=== PATIENT | female | born 1970 | race Caucasian/White ===

== ENCOUNTER 2019-08-08 09:00 | Outpatient (RCR) | payer BC, SELFPAY | END 2019-08-08 09:05 | disposition home or self-care (01) | LOC: PT 09:00 | PROVIDERS: PCP Family Medicine; Visit Provider Orthopaedic Surgery | DX: M25.562 Pain in left knee (principal) | CPT/HCPCS: 97010; 97014; 97033; 97035; 97110; 97163; G0283 ==

== ENCOUNTER 2019-10-04 09:30 | Outpatient (RCR) | payer BC, SELFPAY | END 2019-10-04 09:35 | disposition home or self-care (01) | LOC: PT 09:30 | PROVIDERS: Visit Provider Orthopaedic Surgery | DX: M25.562 Pain in left knee (principal); M22.42 Chondromalacia patellae, left knee | CPT/HCPCS: 97010; 97014; 97110; 97163; G0283 ==

== ENCOUNTER → 2020-02-25 09:11 | Outpatient (CLI) | payer BC, SELFPAY ==
--- NOTE | 2020-02-25 09:26 | XR_ITS ---
PROCEDURE: XR CHEST 2V CLINICAL HISTORY: COUGH COMPARISON: XR CHEST AP from 07/15/2019 FINDINGS: The cardiomediastinal silhouette and pulmonary vascularity are within normal limits. The lungs are clear without infiltrates, suspicious nodules, or pleural effusions. No acute bony abnormalities. Again noted is the mild deformity of the right posterior 4th rib stable unchanged from the previous exam. There may be partial fusion of the right 3rd and 4th ribs posteriorly near the posterior axillary line. IMPRESSION: No acute findings. Dictated by: Dr. Jensen Mcbride MD 02/25/2020 09:[address] Jensen Mcbride MD in [place] 02/25/2020 09:51
== END ==
PROVIDERS: PCP Family Medicine; Visit Provider Family Medicine
DX: R05 Cough (principal)
CPT/HCPCS: 71046

== ENCOUNTER 2020-03-05 23:05 | Emergency (ER) | payer BC, SELFPAY ==
[2020-03-05 23:06] VITALS: BP 136/74; PULSE 78; RESP 16; TEMP 37.2; O2SAT 99; BMI 24.1
[2020-03-05 23:55] LABS: Basophils # 0.1 K/mm3 (0-0.2); Basophils % 0.5 % (0.1-2.0); Chloride 103 mmol/L (98-107); Eosinophils % 0.4 % (0.1-12.0); Hematocrit 38.9 % (37.0-47.0); Hemoglobin 13.1 g/dL (12.2-16.2); Lymphocytes % 18.8 % (10-50); Mean Corpuscular HGB Conc 33.7 g/dL (31.8-35.4); Mean Corpuscular Hemoglobin 31.5 pg (27.0-31.2); Mean Corpuscular Volume 93.7 fl (81-99); Monocytes # 0.6 K/mm3 (0.1-1.0); Monocytes % 5.5 % (1.7-9.3); Neutrophils % 74.7 % (37.0-80.0); Platelet Count 342 K/mm3 (142-424); Potassium 3.8 mmoL/L (3.5-5.1); Red Blood Count 4.15 M/mm3 (4.20-5.40); Red Cell Distribution Width 13.6 % (11.5-17.5); Sodium 139 mmol/L (136-145); White Blood Count 10.7 K/mm3 (4.8-10.8)
[2020-03-05 23:58] LABS: Alanine Aminotransferase 36 U/L (12-78); Albumin Level 4.1 g/dl (3.5-5.0); Albumin/Globulin Ratio 1.3 (1.1-1.8); Alkaline Phosphatase 95 U/L (38-126); Anion Gap 11.8 mEq/L (5-15); Aspartate Amino Transferase 30 U/L (14-36); Bilirubin,Total 0.8 mg/dl (0.2-1.3); Blood Urea Nitrogen 19 mg/dl (7-17); Carbon Dioxide 28 mmol/L (22.0-30.0); Creatinine Clearance Estimated 82 mL/min (50-200); Estimated Glomerular Filt Rate 66 ml/min (>60); GFR (African American) 80 ML/MIN (>60); Globulin 3.2 g/dL (1.3-3.2); Total Protein,Serum 7.3 g/dl (6.3-8.2)
[2020-03-05 23:59] LABS: Calcium 9.6 mg/dl (8.4-10.2); Glucose 126 mg/dl (74-100)
--- NOTE | 2020-03-06 00:02 | CT_ITS ---
PROCEDURE: CT ABDOMEN PELVIS WO CON CLINICAL INDICATION: right flank pain Right flank pain COMPARISON: No exams were available for comparison TECHNIQUE: Axial images obtained with sagittal and coronal reformats. All CT scans at the facility use one or more dose reduction, viz: automated exposure control, ma/kV adjustment per patient size (including targeted exams where dose is matched to indication, i.e. head), or iterative reconstruction technique. FINDINGS: LOWER THORAX: No acute finding ABDOMEN & PELVIS: The liver, spleen, adrenal glands, and pancreas have an unremarkable unenhanced appearance. There is mild distention of the gallbladder. There is moderate right hydronephrosis and hydroureter secondary to a 3 mm stone at the right ureterovesical junction. There are at least 3 stones in the right kidney measuring up to 3 mm in the upper pole. There is a 5.4 cm left renal cyst. No intestinal obstruction or free air. No evidence of appendicitis. There are scattered colonic diverticula but no evidence of diverticulitis. There has been a prior hysterectomy. No acute bony findings. IMPRESSION: 1. 3 mm right ureterovesical junction stone with moderate right-sided hydroureteronephrosis 2. Right nephrolithiasis. 3. Left renal cyst Dictated by: Franklin Hartman MD 03/06/2020 06:11 Electronically signed by Franklin Hartman MD in [place] 03/06/2020 06:11
[2020-03-06 00:05] LABS: Microscopic, Urine URINE MICROSCOPIC (MICROSCOPIC)
[2020-03-06 00:19] LABS: Appearance,Urine CLEAR (Clear); Bilirubin,Urine Negative (Negative); Blood, Urine 2+ (Negative); Color,Urine YELLOW (Yellow); Glucose,Urine (UA) Negative (Negative); Ketones,Urine Negative (Negative); Leukocyte Esterase,Urine Negative (Negative); Nitrate,Urine Negative (Negative); PH,Urine 8.5 (5.0-8.5); Protein,Urine TRACE (Negative); Urobilinogen,Urine 0.2 EU/dl (0.2)
[2020-03-06 00:20] LABS: Bacteria,Urine Trace /lpf
--- NOTE | 2020-03-06 00:39 | HMH.EDGENADL ---
ED Disposition Clinical Impression: Renal colic on right side Disposition: Home, Self-Care Condition on Discharge: Good Instructions: DI for Kidney Stones Additional Instructions: fluids and call urology and pcp in am Referrals: Luis Eduardo Brooks MD [Primary Care Provider] - Solis Stevens MD [Staff Physician] - - Critical Care Critical Care Time: No Attestation: On 03/05/20, the high probability of a clinically significant, sudden or life threatening deterioration of the following system(s) required my full and direct attention, intervention and personal management. The time I documented below is in addition to time spent performing reported procedures but includes the following listed in this critical care notation. Medical Decision Making - Medical Records Medical records reviewed: Yes: I reviewed the patient's medical records. - Yoan Inquiry Pt receiving controlled substance: No Vital Signs: 03/05/20 23:06 Temperature 98.9 F Temperature Source Oral Pulse Rate [Left Radial] 78 Respiratory Rate 16 Blood Pressure [Right Arm] 136/74 Blood Pressure Mean [Right Arm] 94 Blood Pressure Source [Right Arm] Automatic Cuff Blood Pressure Position [Right Arm] Sitting 02 Sat by Pulse Oximetry 99 Oxygen Delivery Method Room Air - Lab Data Lab results reviewed: Yes: I reviewed the patient's lab results. Lab Results 03/05/20 23:38: WBC 10.7, RBC 4.15 L, Hgb 13.1, Hct 38.9, MCV 93.7, MCH 31.5 H, MCHC 33.7, RDW 13.6, Plt Count 342, MPV 7.0 L, Neut % (Auto) 74.7, Lymph % (Auto) 18.8, [place] % (Auto) 5.5, Eos % (Auto) 0.4, Baso % (Auto) 0.5, Neut # (Auto) 8.0 H, Lymph # (Auto) 2.0, [place] # (Auto) 0.6, Eos # (Auto) 0.0, Baso # (Auto) 0.1 03/05/20 23:38: Sodium 139, Potassium 3.8, Chloride 103, Carbon Dioxide 28, Anion Gap 11.8, BUN 19 H, Creatinine 0.90, Estimated Creat Clear 82, Estimated GFR 66, Est GFR ( Amer) 80, Glucose 126 H, Calcium 9.6, Total Bilirubin 0.8, AST 30, ALT 36, Alkaline Phosphatase 95, Total Protein 7.3, Albumin 4.1, Globulin 3.2, Albumin/Globulin Ratio 1.3 03/05/20 23:45: Urine Color Yellow, Urine Appearance Clear, Urine pH 8.5, Ur Specific [place] 1.020, Urine Protein Trace, Urine Glucose (UA) Negative, Urine Ketones Negative, Urine Blood 2+, Urine Nitrate Negative, Urine Bilirubin Negative, Urine Urobilinogen 0.2, Ur Leukocyte Esterase Negative, Urine RBC 5-10, Urine WBC 3-5, Ur Squamous Epith Cells 3-5, Urine Bacteria Trace Result diagrams: 03/05/20 23:38 03/05/20 23:38 Orders (Tests/Meds): ED MEDICATIONS Generic Name Dose Route Start Last Admin Trade Name Freq PRN Reason Stop Dose Admin Sodium Chloride 1,000 mls @ 999 mls/hr 03/05/20 23:45 03/05/20 23:49 Sod Chlor 0.9% 1000ml Bag IV 03/06/20 00:45 999 mls/hr .Q1H1M JENNIFER Administration Discontinued Medications Generic Name Dose Route Start Last Admin Trade Name Freq PRN Reason Stop Dose Admin Ketorolac Tromethamine 30 mg 03/05/20 23:46 03/05/20 23:49 Toradol 30mg/Ml Vial IV 03/05/20 23:47 30 mg ONCE ONE Administration Ondansetron HCl 4 mg 03/05/20 23:46 03/05/20 23:49 Zofran 4mg/2ml Vial IV 03/05/20 23:47 4 mg ONCE ONE Administration ORDERS Category Date Time Status CT abdomen pelvis wo con Stat Cat Scan 03/06/20 00:02 Taken - CT Data CT Scan: Abdomen, Pelvis Time Received: 00:[address] Reviewed: Yes: I have viewed the radiologist's interpretation Preliminary Findings: Abnormal (2 mm rt stone ) - Reevaluation(s) Time: 00:43 Reevaluation #1: better General Adult HPI - General Chief complaint: PAIN Stated complaint: Possible kidney stone Time Seen by Provider: 03/05/20 23:15 Mode of Arrival: Ambulatory Source of Information: Patient Limitations: No Limitations Description of Symptoms (Recalled from ER Triage Doc. by RN): pt c/o right flank pain since 5pm with no relief. pt reports history of kidney stones. - History of Present Illness HPI narrative: acut
[2020-03-06 00:53] VITALS: BP 132/68; PULSE 71; RESP 15; TEMP 37; O2SAT 98
== END 2020-03-06 00:58 | disposition home or self-care (01) ==
PROVIDERS: Emergency Provider Emergency Medicine; PCP Family Medicine
DX: N23 Unspecified renal colic (principal)
CPT/HCPCS: 74176; 80053; 81001; 85025; 96365; 96375; 99283; J2405

== ENCOUNTER 2020-05-07 08:00 | Outpatient (RCR) | payer BC, SELFPAY | END 2020-05-07 08:05 | disposition home or self-care (01) | LOC: PT 08:00 | PROVIDERS: PCP Family Medicine; Visit Provider Orthopaedic Surgery | DX: Z96.652 Presence of left artificial knee joint (principal); M25.562 Pain in left knee | CPT/HCPCS: 97010; 97014; 97016; 97110; 97140; 97163; 97164; G0283 ==

== ENCOUNTER → 2020-09-14 16:17 | Outpatient (CLI) | payer BC, SELFPAY ==
[2020-09-16 13:40] LABS: Covid-19 Nasal PCR Sendout Lex POSITIVE
== END ==
PROVIDERS: PCP Family Medicine; Visit Provider Family Medicine
DX: Z20.828 Contact with and (suspected) exposure to other viral communicable diseases (principal); U07.1 COVID-19; R05 Cough
CPT/HCPCS: U0004

== ENCOUNTER → 2020-12-14 11:24 | Outpatient (CLI) | payer BC, SELFPAY ==
--- NOTE | 2020-12-14 11:30 | XR_ITS ---
PROCEDURE: XR FOOT RT MIN 3V CLINICAL INDICATION: SWELLING OF RT FOOT COMPARISON: CR FTR3 FOOT-RT-3 VIEWS from 05/31/2016 FINDINGS: No fracture or dislocation. No lytic or blastic change. There is normal mineralization. The joint spaces are well-preserved. No significant degenerative/arthritic changes. No erosive changes evident. Other findings:None. IMPRESSION: No acute findings. Dictated by: Franklin Hartman MD 12/14/2020 12:18 Franklin Hartman MD in [place] 12/14/2020 12:18
[2020-12-14 12:38] LABS: Basophils % 0.6 % (0.1-2.0); Eosinophils # 0.2 K/mm3 (0.0-0.4); Eosinophils % 3.3 % (0.1-12.0); Hematocrit 43.3 % (37.0-47.0); Hemoglobin 14.1 g/dL (12.2-16.2); Lymphocytes # 1.8 K/mm3 (0.7-4.5); Lymphocytes % 35.4 % (10-50); Mean Corpuscular HGB Conc 32.6 g/dL (31.8-35.4); Mean Corpuscular Hemoglobin 31.3 pg (27.0-31.2); Mean Platelet Volume 7.6 fl (7.4-10.4); Monocytes # 0.4 K/mm3 (0.1-1.0); Monocytes % 7.1 % (1.7-9.3); Neutrophils # 2.7 K/mm3 (1.8-7.8); Neutrophils % 53.5 % (37.0-80.0); Platelet Count 361 K/mm3 (142-424); Red Blood Count 4.51 M/mm3 (4.20-5.40); Red Cell Distribution Width 12.6 % (11.5-17.5); White Blood Count 5.1 K/mm3 (4.8-10.8)
[2020-12-14 12:50] LABS: Uric Acid 4.3 mg/dl (2.5-6.2)
[2020-12-14 14:35] LABS: Erythrocyte Sedimentation Rate 13 mm/hr (0-30)
[2020-12-15 15:42] LABS: RA Latex Turbid. <10.0 IU/mL (0.0-13.9)
[2020-12-17 05:22] LABS: Antinuclear Antibodies, IFA Negative (.)
== END ==
PROVIDERS: PCP Nurse Practitioner Family; Visit Provider Nurse Practitioner Family
DX: M79.89 Other specified soft tissue disorders (principal); M79.671 Pain in right foot
CPT/HCPCS: 36415; 73630; 84550; 85025; 85651; 86038; 86140; 86431

== ENCOUNTER → 2022-01-10 13:59 | Outpatient (CLI) | payer BC, SELFPAY ==
--- NOTE | 2022-01-10 14:07 | XR_ITS ---
FINAL REPORT CLINICAL HISTORY: CERVICALGIA, dizzy spells, object fell on back of neck years ago FINDINGS: 5 views of the cervical spine were obtained. There is no acute fracture or subluxation. There is straightening of the normal cervical lordosis. Mild degenerative changes are seen with osteophytes. There is no significant neural foraminal narrowing. IMPRESSION: Degenerative changes without acute bony abnormality. Reviewed, Interpreted and Dictated by Roscoe Lemon III, MD Transcribed by Kristel Padilla Authenticated by Roscoe Lemon III, MD on 01/10/2022 03:07:25 PM [facility]
--- NOTE | 2022-01-10 14:28 | MR_ITS ---
FINAL REPORT CLINICAL HISTORY: CERVICALGIA. dizziness and headache. FINDINGS: Multiplanar MR imaging of the cervical spine was performed without contrast. On the sagittal T2-weighted images, disc degeneration is seen throughout. There are endplate changes at several levels. There is straightening of the normal cervical curvature which could be due to positioning or muscle spasm. There is no evidence of fracture. The vertebral alignment is normal. The cervical spinal cord has an unremarkable appearance without evidence of mass, edema or syrinx. No significant canal stenosis is identified. The cervicomedullary junction is normal. C2-3: An annular bulge is present. There is no significant canal stenosis or neural foraminal narrowing. C3-4: There is an annular bulge with uncovertebral osteophytes. There is mild left neural foraminal narrowing. C4-5: There is a disc osteophyte complex. There is mild right and moderate left neural foraminal narrowing. C5-6: There is a disc osteophyte complex with mild bilateral neural foraminal narrowing. C6-7: There is an annular bulge with uncovertebral osteophytes. There is mild bilateral neural foraminal narrowing. C7-T1: There is no significant canal stenosis or neural foraminal narrowing. IMPRESSION: Multilevel degenerative disc disease with areas of neural foraminal narrowing as described. Reviewed, Interpreted and Dictated by Roscoe Lemon III, MD Transcribed by Roman Davis Authenticated by Roscoe Lemon III, MD on 01/10/2022 04:32:[address] [facility]
== END ==
PROVIDERS: PCP Nurse Practitioner Family; Visit Provider Nurse Practitioner Family
DX: M54.2 Cervicalgia (principal)
CPT/HCPCS: 72050; 72141; 76376

== ENCOUNTER 2022-04-26 09:49 | Emergency (ER) | payer BC, SELFPAY ==
--- NOTE | 2022-04-26 09:44 | ECG_ITS ---
APPROVED REPORT Exam: Resting ECG HR:69 bpm ECG Measurements Heart Rate 69 AXES ID 153 P 62 QRSd 82 QRS 52 QT 415 T 44 QTc 434 Conclusion SINUS RHYTHM NORMAL ECG UNCONFIRMED REPORT Electronically signed by : Luis Eduardo Cox MD 04/27/2022 21:03:28
[2022-04-26 09:49] VITALS: BP 151/81; PULSE 73; RESP 15; TEMP 36.6; O2SAT 100; BMI 25.0
--- NOTE | 2022-04-26 09:55 | XR_ITS ---
FINAL REPORT CLINICAL HISTORY: syncope COMPARISON: February 25, 2020 FINDINGS: Two views of the chest were obtained. The heart size and pulmonary vascularity are within normal limits. The mediastinum is normal. No acute pulmonary abnormality is identified. There is no pneumothorax. The bony thorax is intact. IMPRESSION: No active cardiopulmonary disease. Reviewed, Interpreted and Dictated by Roscoe Lemon III, MD Transcribed by Roman Davis Authenticated and [facility]
[2022-04-26 10:01] VITALS: BP 147/80; PULSE 71; RESP 13; O2SAT 96
--- NOTE | 2022-04-26 10:04 | HMH.EDGENADL ---
ED Disposition Clinical Impression: Status migrainosus, Syncope and collapse Disposition: Home, Self-Care Condition on Discharge: Good Instructions: DI for Syncope in Adults (Fainting), DI for Migraine Additional Instructions: Additional instructions for HEADACHE: See your physician as soon as possible for further evaluation. Return immediately if fainting returns, worsening headache, vomiting, problems with vision or speech, fever, numbness or weakness of the extremities, neck pain or stiffness. Referrals: Provider,Referral, MD [Primary Care Provider] - Forms: Work/School Release - Critical Care Critical Care Time: No Attestation: On , the high probability of a clinically significant, sudden or life threatening deterioration of the following system(s) required my full and direct attention, intervention and personal management. The time I documented below is in addition to time spent performing reported procedures but includes the following listed in this critical care notation. Medical Decision Making - Yoan Inquiry Pt receiving controlled substance: No Vital Signs: 04/26/22 09:49 04/26/22 10:01 04/26/22 11:01 Temperature 97.8 F Temperature Source Oral Pulse Rate 71 84 Pulse Rate [Left Radial] 73 Respiratory Rate 15 13 Blood Pressure 147/80 H 142/79 H Blood Pressure [Right Arm] 151/81 H Blood Pressure Mean 102 104 Blood Pressure Mean [Right Arm] 104 Blood Pressure Source [Right Arm] Automatic Cuff Blood Pressure Position [Right Arm] Sitting 02 Sat by Pulse Oximetry 100 96 100 Oxygen Delivery Method Room Air 04/26/22 11:30 Temperature Temperature Source Pulse Rate 71 Pulse Rate [Left Radial] Respiratory Rate Blood Pressure 138/71 Blood Pressure [Right Arm] Blood Pressure Mean 93 Blood Pressure Mean [Right Arm] Blood Pressure Source [Right Arm] Blood Pressure Position [Right Arm] 02 Sat by Pulse Oximetry 99 Oxygen Delivery Method - Lab Data Lab Results 04/26/22 09:45: WBC 6.5, RBC 4.23, Hgb 13.4, Hct 39.4, MCV 93.2, MCH 31.7 H, MCHC 34.0, RDW 11.8, Plt Count 355, MPV 6.7 L, Neut % (Auto) 54.7, Lymph % (Auto) 36.7, [place] % (Auto) 6.4, Eos % (Auto) 1.6, Baso % (Auto) 0.5, Neut # (Auto) 3.6, Lymph # (Auto) 2.4, [place] # (Auto) 0.4, Eos # (Auto) 0.1, Baso # (Auto) 0.0 04/26/22 09:45: Sodium 139, Potassium 3.4 L, Chloride 105, Carbon Dioxide 24, Anion Gap 13.4, BUN 13, Creatinine 0.80, Estimated Creat Clear 93, Estimated GFR 75, Est GFR ( Amer) 91, Glucose 144 H, Calcium 9.4, Total Bilirubin 0.2, AST 30, ALT 28, Alkaline Phosphatase 110, Troponin I < 0.01, Total Protein 7.0, Albumin 4.1, Globulin 2.9, Albumin/Globulin Ratio 1.4 Result diagrams: 04/26/22 09:45 04/26/22 09:45 Orders (Tests/Meds): ED MEDICATIONS Generic Name Dose Route Start Last Admin Trade Name Freq PRN Reason Stop Dose Admin Sodium Chloride 10 ml 04/26/22 09:55 Sodium Chloride 0.9% 10ml Flush Syringe IV 05/26/22 09:54 NEEDED PRN Maintain IV Site Discontinued Medications Generic Name Dose Route Start Last Admin Trade Name Freq PRN Reason Stop Dose Admin Diphenhydramine HCl 25 mg 04/26/22 09:55 04/26/22 10:01 Diphenhydramine 50mg/Ml Vial IV 04/26/22 09:56 25 mg ONCE ONE Administration Sodium Chloride 1,000 mls @ 999 mls/hr 04/26/22 10:00 04/26/22 10:03 Sod Chlor 0.9% 1000ml Bag IV 04/26/22 11:00 999 mls/hr .Q1H1M JENNIFER Administration Ketorolac Tromethamine 30 mg 04/26/22 09:55 04/26/22 10:00 Ketorolac 30mg/Ml Vial IV 04/26/22 09:56 30 mg ONCE ONE Administration Promethazine HCl 12.5 mg 04/26/22 09:55 04/26/22 10:03 Promethazine Hcl 25mg/Ml 1ml Vial IV 04/26/22 09:56 12.5 mg ONCE ONE Administration Sodium Chloride 25 ml 04/26/22 09:55 04/26/22 10:03 Sodium Chloride 0.9% 25ml Bag IV 04/26/22 09:56 25 ml ONCE ONE Administration ORDERS Category Date Time Status Troponin I Q3H Lab 04/26/22 13:00 Order
--- NOTE | 2022-04-26 10:05 | PC.NURSE ---
pt to radiology via wheelchair
[2022-04-26 10:09] LABS: Basophils % 0.5 % (0.1-2.0); Eosinophils # 0.1 K/mm3 (0.0-0.4); Eosinophils % 1.6 % (0.1-12.0); Hematocrit 39.4 % (37.0-47.0); Hemoglobin 13.4 g/dL (12.2-16.2); Lymphocytes # 2.4 K/mm3 (0.7-4.5); Lymphocytes % 36.7 % (10-50); Mean Corpuscular Hemoglobin 31.7 pg (27.0-31.2); Mean Corpuscular Volume 93.2 fl (81-99); Mean Platelet Volume 6.7 fl (7.4-10.4); Monocytes # 0.4 K/mm3 (0.1-1.0); Monocytes % 6.4 % (1.7-9.3); Neutrophils # 3.6 K/mm3 (1.8-7.8); Neutrophils % 54.7 % (37.0-80.0); Platelet Count 355 K/mm3 (142-424); Red Blood Count 4.23 M/mm3 (4.20-5.40); Red Cell Distribution Width 11.8 % (11.5-17.5); White Blood Count 6.5 K/mm3 (4.8-10.8)
--- NOTE | 2022-04-26 10:10 | PC.NURSE ---
patient returned from radiology via .
[2022-04-26 10:15] LABS: Alanine Aminotransferase 28 U/L (12-78); Albumin Level 4.1 g/dl (3.5-5.0); Albumin/Globulin Ratio 1.4 (1.1-1.8); Alkaline Phosphatase 110 U/L (38-126); Anion Gap 13.4 mEq/L (5-15); Aspartate Amino Transferase 30 U/L (14-36); Bilirubin,Total 0.2 mg/dl (0.2-1.3); Blood Urea Nitrogen 13 mg/dl (7-17); Calcium 9.4 mg/dl (8.4-10.2); Carbon Dioxide 24 mmol/L (22.0-30.0); Chloride 105 mmol/L (98-107); Creatinine Clearance Estimated 93 mL/min (50-200); Estimated Glomerular Filt Rate 75 ml/min (>60); GFR (African American) 91 ML/MIN (>60); Globulin 2.9 g/dL (1.3-3.2); Glucose 144 mg/dl (74-100); Potassium 3.4 mmoL/L (3.5-5.1); Sodium 139 mmol/L (136-145)
--- NOTE | 2022-04-26 10:21 | PC.NURSE ---
LANE [facility] at speaking with patient
--- NOTE | 2022-04-26 10:25 | CT_ITS ---
FINAL REPORT CLINICAL HISTORY: headache, syncope COMPARISON: 07/15/2019 FINDINGS: Axial images of the head were obtained without contrast. Coronal reformatted images were also obtained.This study was performed with techniques to keep radiation doses as low as reasonably achievable (ALARA). Individualized dose reduction techniques using automated exposure control or adjustment of mA and/or kV according to the patient's size were employed. There is no evidence of intracranial hemorrhage or mass. The ventricular size is within normal limits. There is no evidence of shift of the midline structures. No abnormal extra axial fluid collection is identified. No skull abnormality is seen on the bone window images. IMPRESSION: No acute intracranial abnormality. Reviewed, Interpreted and Dictated by Roscoe Lemon III, MD Transcribed by Vera Ferguson Authenticated and [facility]
[2022-04-26 10:32] LABS: Troponin I < 0.01 ng/ml (0.00-0.034)
--- NOTE | 2022-04-26 10:43 | PC.NURSE ---
pt to CT via WC with airbrush artist technical
[2022-04-26 11:01] VITALS: BP 142/79; PULSE 84; O2SAT 100
--- NOTE | 2022-04-26 11:14 | PC.NURSE ---
pt ambulated up to BR
[2022-04-26 11:30] VITALS: BP 138/71; PULSE 71; O2SAT 99
--- NOTE | 2022-04-26 11:41 | PC.NURSE ---
Rounded on patient; she reports her DANIELLE is still lingering but shes feeling somewhat better. She has no needs at this time. Aware that her scans are back and the ER MD will be in shortly.
--- NOTE | 2022-04-26 12:10 | PC.NURSE ---
ER at going over lab and imaging results with patient; friend at BS
[2022-04-26 12:17] VITALS: BP 123/64; PULSE 80; RESP 20; TEMP 36.6; O2SAT 99
== END 2022-04-26 12:18 | disposition home or self-care (01) ==
PROVIDERS: Emergency Provider Emergency Medicine
DX: G43.901 Migraine, unspecified, not intractable, with status migrainosus (principal); R55 Syncope and collapse
CPT/HCPCS: 70450; 71046; 80053; 84484; 85025; 93005; 96365; 96375; 99284

== ENCOUNTER 2022-05-27 13:20 | Emergency (ER) | payer BC, SELFPAY ==
--- NOTE | 2022-05-27 14:02 | HMH.EDUTC ---
[facility] [place] Disposition Clinical Impression: Viral syndrome, Exposure to COVID-19 virus Disposition: Home, Self-Care Condition on Discharge: Good Instructions: DI for COVID-19 (Suspected or Confirmed ), Preventing the Spread of Coronavirus Discharge Instructions Additional Instructions: Drink plenty of fluids. Take tylenol or ibuprofen for pain or fever. Take the medications as directed. Follow up with your regular doctor. GO TO THE ER FOR ANY WORSENING SYMPTOMS Quarantine until you know the results of your covid-19 test. Notify your school or workplace of your results and follow their instructions regarding return to work/school. Prescriptions: Ondansetron [Zofran 4mg ODT] 4 mg PO Q8HP PRN #20 tab PRN Reason: Nausea Transmission Status: Received by [id number] Benzonatate [Benzonatate 100mg cap] 100 mg PO TIDP PRN #30 cap PRN Reason: Cough Transmission Status: Received by [id number] Referrals: Coty Kelly APRN [Primary Care Provider] - Time of Disposition: 14:57 Medical Decision Making - Medical Records Medical records reviewed: No: I reviewed the patient's medical records. - Yoan Inquiry Pt receiving controlled substance: No Vital Signs: 05/27/22 14:12 05/27/22 15:04 Temperature 98.5 F 98.5 F Temperature Source Oral Pulse Rate 80 Pulse Rate [Left Radial] 81 Respiratory Rate 20 20 Blood Pressure 131/70 Blood Pressure [Right Arm] 139/79 Blood Pressure Mean [Right Arm] 99 02 Sat by Pulse Oximetry 96 Oxygen Delivery Method Room Air [facility] [place] HPI - General Stated complaint: sore throat,nausea,weak,headache Time Seen by Provider: 05/27/22 14:02 - History of Present Illness Provider Complaint: She state that she has felt bad since yesterday. she has been exposed to covid by her boyfriend having it. - Related Data Home Medications Medication Instructions Recorded Confirmed Aspirin/Acetaminophen/Caffeine 1 each PO DAILY PRN 07/14/19 07/14/19 [Excedrin Migraine Caplet] Previous Rx's Medication Instructions Recorded Ketorolac Tromethamine [Toradol 10 mg PO Q6H 3 Days #12 tab 07/15/19 10mg tablet] Benzonatate [Benzonatate 100mg 100 mg PO TIDP PRN #30 cap 05/27/22 cap] Ondansetron [Zofran 4mg ODT] 4 mg PO Q8HP PRN #20 tab 05/27/22 Allergies Allergy/AdvReac Type Severity Reaction Status Date / Time No Known Allergies Allergy Verified 07/14/19 23:09 [facility] History - Hepatitis A Screen Attestation statement:: This patient has been screened for Hepatitis A risk factors. I have reviewed the patient's past medical history: Yes Medical History: Denies:: Diabetes Mellitus Type 1, Diabetes Mellitus Type 2, Internal Pacemaker Other Surgeries: No: Pacemaker Amputation: No - Social History Alcohol Intake: never Occupational Status: employed ROS Obtained: Yes All systems reviewed & no additional complaints - Constitutional Constitutional: Reports as per HPI - Eyes Eyes: Denies eye discharge - ENT Ears, Nose, Mouth, and Throat: Reports as per HPI - Cardiovascular Cardiovascular: Denies chest pain - Respiratory Respiratory: Denies chest congestion, Reports cough Physical Exam - General General appearance: alert, in no apparent distress - Head Head exam: atraumatic, normocephalic, normal inspection - Eye Eye exam: Present: normal appearance, PERRL, EOMI - ENT ENT exam: Present: normal exam, normal oropharynx, mucous membranes moist, TM's normal bilaterally, normal external ear exam - Neck Neck exam: Present: normal inspection, full ROM, trachea midline. Absent: meningismus, lymphadenopathy - Chest Chest inspection: Present: normal inspection, symmetric chest wall rise. Absent: tenderness - Respiratory Respiratory exam: Present: normal lung sounds bilaterally. Absent: respiratory distress - Cardiovascular Cardiovascular exam: Present: regular rate, normal rhythm. Absent: JV
[2022-05-27 14:12] VITALS: BP 139/79; PULSE 81; RESP 20; TEMP 36.9; O2SAT 96; BMI 23.5
[2022-05-27 15:04] VITALS: BP 131/70; PULSE 80; RESP 20; TEMP 36.9; O2SAT 97
== END 2022-05-27 15:05 | disposition home or self-care (01) ==
PROVIDERS: Emergency Provider Nurse Practitioner Family; PCP Nurse Practitioner Family
DX: Z20.822 Contact with and (suspected) exposure to COVID-19 (principal); B34.9 Viral infection, unspecified
CPT/HCPCS: 99212; C9803; G0463; U0003; U0005

== ENCOUNTER → 2022-09-06 09:44 | Outpatient (CLI) | payer BC, SELFPAY ==
--- NOTE | 2022-09-06 09:47 | MM_ITS ---
PROCEDURE INFORMATION: Exam: MG Bilateral Screening 3D Mammography Exam date and time: 09/06/2022 9:43 AM Age: 51 years old Clinical indication: Screening examination TECHNIQUE: Imaging protocol: Bilateral Screening tomosynthesis and 2D mammography including computer-aided detection (CAD) when performed. COMPARISON: No relevant prior studies available. FINDINGS: MAMMOGRAPHY: Breast composition: There are scattered areas of fibroglandular density. Mass: 0.8 cm mass in the posterior third of the right upper outer quadrant. 0.7 cm mass in close proximity to the larger mass within the posterior third of the right upper outer quadrant Architectural distortion: None. Calcifications: No suspicious calcifications. Asymmetric density: None. Skin thickening: None. Axillary adenopathy: None. IMPRESSION: Patient to be recalled for spot compression views of the right breast in the CC and MLO projections, a full 90 degree lateral view, and right breast ultrasound for further evaluation of 2 adjacent right breast masses. ASSESSMENT: BI-RADS Category 0: Incomplete- Need Additional Imaging Evaluation and/or Prior Mammograms for Comparison
== END ==
PROVIDERS: PCP Nurse Practitioner Family; Visit Provider Family Medicine
DX: Z12.31 Encounter for screening mammogram for malignant neoplasm of breast (principal)
CPT/HCPCS: 77063; 77067

== ENCOUNTER → 2022-10-24 14:29 | Outpatient (CLI) | payer BC, SELFPAY ==
--- NOTE | 2022-10-24 14:37 | MM_ITS ---
PROCEDURE INFORMATION: Exam: US Right Breast, Complete MG Right Diagnostic Breast Tomosynthesis Exam date and time: 10/24/2022 3:26 PM Age: 51 years old Clinical indication: Patient recalled on the basis of a screening mammogram for further evaluation; Right breast; masses TECHNIQUE: Imaging protocol: Complete ultrasound of all four quadrants of the Right breast and the retroareolar regions, including ultrasound of the axilla when performed. Right Diagnostic tomosynthesis and 2D mammography including computer-aided detection (CAD) when performed. Unilateral or bilateral exam. COMPARISON: MG MM DIG MAMM DX UNILAT RT CAD 10/24/2022 2:40 PM FINDINGS: MAMMOGRAPHY: Digital diagnostic spot compression views of the right upper outer quadrant demonstrates a solitary persistent 0.8 cm mass without associated architectural distortion. ULTRASOUND: Sonographic images of the right breast including the retroareolar region, all 4 quadrants and the axilla do not demonstrate any solid masses. Few scattered subcentimeter cysts are noted in the upper outer quadrant. The largest cyst measures 0.6 cm and appears to most closely correspond to the mass on mammography. No architectural distortion or acoustical shadowing. No skin thickening or axillary adenopathy. IMPRESSION: Mass on screening mammography corresponds to underlying cystic change sonographically. There is no mammographic evidence of malignancy.Annual bilateral mammographic screening is recommended unless otherwise clinically indicated. ASSESSMENT: BI-RADS Category 2: Benign
== END ==
PROVIDERS: PCP Internal Medicine; Visit Provider Nurse Practitioner Family
DX: R92.8 Other abnormal and inconclusive findings on diagnostic imaging of breast (principal)
CPT/HCPCS: 76641; 77061; 77065; G0279

== ENCOUNTER 2022-12-09 07:59 | Emergency (ER) | payer BC, SELFPAY ==
[2022-12-09 08:05] VITALS: BP 146/95; PULSE 78; RESP 21; TEMP 36.5; O2SAT 99; BMI 22.1
[2022-12-09 08:20] LABS: UTC Strep Screen (Rapid) Negative (Negative)
--- NOTE | 2022-12-09 08:20 | EXP.UTC ---
Discharge Plan Disposition Patient Disposition: Home, Self-Care Condition: Good Prescriptions Prescriptions: New benzonatate [benzonatate] 100 mg capsule 100 mg PO TIDP PRN (Reason: Cough) Qty: 30 0RF methylprednisolone 4 mg Tablets,Dose Pack 4 mg PO DIRECTED Qty: 21 0RF amoxicillin-pot clavulanate 500-125 mg tablet 1 tab PO BID Qty: 20 0RF No Action trazodone 50 mg tablet 50 mg PO DAILY levothyroxine 50 mcg tablet 50 mcg PO DAILY Ubrelvy 100 mg tablet 100 mg PO DAILYP PRN (Reason: MIGRAINES) Label Comments: TAKE 1 TABLET BY MOUTH ONCE DAILY NEEDED Referrals Follow up/Referrals: Cheng Cadena MD [Primary Care Provider] - See instructions Activity Restrictions/Add. Instructions Additional Instructions/Restrictions: Drink plenty of fluids. Take tylenol or ibuprofen for pain or fever. Take the medications as directed. Follow up with your regular doctor. GO TO THE ER FOR ANY WORSENING SYMPTOMS Clinical Impressions Clinical Impression: Pharyngitis Stand Alone Forms Stand Alone Forms: Work/School Release Instructions Patient Instructions: DI for Pharyngitis/Tonsillopharyngitis -- Adult Discharge ED Provider: Roque Engel [facility] General Stated complaint: Cough sore throat Mode of Arrival: Ambulatory Source of Information: Patient Limitations: No Limitations Time Seen by Provider: 12/09/22 08:20 Description of Symptoms (Recalled from Triage Doc. by RN): PATIENT C/O COUGH, SORE THROAT, AND CHEST CONGESTION SINCE YESTERDAY HEENT Symptoms (Recalled from RN notes): Yes Resp Symptoms (Recalled from RN notes): Yes Skin Symptoms (Recalled from RN notes): No MS Symptoms (Recalled from RN notes): No Functional Status (Recalled from RN notes): WNL Related Data Home Medications Medication Instructions Recorded Confirmed levothyroxine 50 mcg tablet 50 mcg PO DAILY THYROID 12/09/22 12/09/22 trazodone 50 mg tablet 50 mg PO DAILY . 12/09/22 12/09/22 ubrogepant 100 mg tablet (Ubrelvy) 100 mg PO DAILYP PRN MIGRAINES 12/09/22 12/09/22 Previous Rx's Medication Instructions Recorded amoxicillin 500 mg-potassium 1 tab PO BID #20 tabs 12/09/22 clavulanate 125 mg tablet benzonatate 100 mg capsule 100 mg PO TIDP PRN Cough #30 caps 12/09/22 methylprednisolone 4 mg tablets in 4 mg PO DIRECTED #21 tabs 12/09/22 a dose pack Allergies Allergy/AdvReac Type Severity Reaction Status Date / Time No Known Allergies Allergy Verified 07/14/19 23:09 Worker's Comp Is this a Worker's Comp case?: No [facility] Disclaimer: The information contained in this section may have been updated after the patient was seen, as this information can be updated by other users. Social History Smoking Status: Former smoker alcohol intake: never current occupational status: employed Travel in the last 8 weeks: None ROS Obtained: Yes All systems reviewed & no additional complaints except as documented Constitutional Constitutional: Reports chills and Denies fever(s) Eyes Eyes: Denies eye discharge ENT Ears, Nose, Mouth, and Throat: Reports as per HPI Cardiovascular Cardiovascular: Denies chest pain Respiratory Respiratory: Denies chest congestion and Reports cough Gastrointestinal Gastrointestingal: Reports nausea; Denies abdominal pain, constipation, cramping, diarrhea or vomiting Musculoskeletal Musculoskeletal: Denies arthralgias Integumentary/Breasts Skin/Breast: Denies rash Neurologic Neurologic: Denies paresthesias Physical Exam General General appearance: alert and in no apparent distress Head Head exam: atraumatic, normocephalic and normal inspection Eye Eye exam: Present normal appearance, PERRL and EOMI ENT ENT exam: Present mucous membranes moist and normal external ear exam Expanded ENT Exam TM/Canal exam: Bilateral TM: erythema and bulging Nose exam: Absent sinus tenderness Mouth exam: Present normal external inspection;
[2022-12-09 09:11] VITALS: BP 146/95; PULSE 78; RESP 21; TEMP 36.5; O2SAT 99
== END 2022-12-09 09:12 | disposition home or self-care (01) ==
PROVIDERS: Emergency Provider Nurse Practitioner Family; PCP Internal Medicine
DX: J02.9 Acute pharyngitis, unspecified (principal); R05.9 Cough, unspecified; R09.89 Other specified symptoms and signs involving the circulatory and respiratory systems
CPT/HCPCS: 87880; 99212; 99213; G0463

== ENCOUNTER 2023-04-19 08:30 | Outpatient (RCR) | payer BC, SELFPAY | END 2023-04-19 08:35 | disposition home or self-care (01) | LOC: PT 08:30 | PROVIDERS: PCP Internal Medicine | DX: M76.71 Peroneal tendinitis, right leg (principal); M76.821 Posterior tibial tendinitis, right leg; M19.071 Primary osteoarthritis, right ankle and foot; M79.671 Pain in right foot | CPT/HCPCS: 97010; 97014; 97035; 97140; 97163; G0283 ==

== ENCOUNTER 2024-02-22 07:46 | Outpatient (CLI) | payer BC, SELFPAY ==
--- NOTE | 2024-02-22 07:49 | MM_ITS ---
PROCEDURE INFORMATION: Exam: MG Bilateral Screening 3D Mammography Exam date and time: 02/22/2024 7:44 AM Age: 53 years old Clinical indication: Screening mammogram TECHNIQUE: Imaging protocol: Bilateral Screening tomosynthesis and 2D mammography including computer-aided detection (CAD) when performed. COMPARISON: 1. MG MM DIG MAMM DX UNILAT RT CAD 10/24/2022 2:40 PM 2. MG MM DIG SCREENING MAMM BI W/CAD 09/06/2022 9:43 AM 3. US BREAST RT COMPLETE 10/24/2022 3:26 PM FINDINGS: MAMMOGRAPHY: Breast composition: There are scattered areas of fibroglandular density. Mass: Stable benign-appearing subcentimeter nodules are present in the bilateral breasts. No new or morphologically suspicious nodule has developed to suggest malignancy. Architectural distortion: No new or suspicious architectural distortion. Calcifications: No new or suspicious calcifications are present Asymmetric density: No new or suspicious asymmetric density is present Skin thickening: None. Axillary adenopathy: None. IMPRESSION: No mammographic evidence of malignancy. Recommend annual screening mammography unless otherwise clinically indicated. ASSESSMENT: BI-RADS category 2: Benign.
== END 2024-02-22 23:59 | disposition home or self-care (01) ==
LOC: RAD 07:47
PROVIDERS: PCP Internal Medicine; Visit Provider Internal Medicine
DX: Z12.31 Encounter for screening mammogram for malignant neoplasm of breast (principal)
CPT/HCPCS: 77063; 77067

== ENCOUNTER 2025-02-24 14:13 | Outpatient (CLI) | payer BC, SELFPAY ==
--- NOTE | 2025-02-24 14:16 | MM_ITS ---
PROCEDURE INFORMATION: Exam: MG Bilateral Screening 3D Mammography Exam date and time: 02/24/2025 2:19 PM Age: 54 years old Clinical indication: Screening examination TECHNIQUE: Imaging protocol: Bilateral Screening tomosynthesis and 2D mammography including computer-aided detection (CAD) when performed. COMPARISON: 1. MG MM DIG SCREENING MAMM BI W/CAD 02/22/2024 7:44 AM 2. MG MM DIG MAMM DX UNILAT RT CAD 10/24/2022 2:40 PM FINDINGS: MAMMOGRAPHY: Breast composition: There are scattered areas of fibroglandular density. Mass: None. Archite ctural distortion: None. Calcifications: No suspicious calcifications. Asymmetric density: None. Skin thickening: None. Axillary adenopathy: None. IMPRESSION: No mammographic evidence of malignancy. Annual screening is recommended unless otherwise clinically indicated. ASSESSMENT: BI-RADS 1, Negative.
== END 2025-02-24 23:59 | disposition home or self-care (01) ==
LOC: RAD 14:14
PROVIDERS: PCP Internal Medicine; Visit Provider Internal Medicine
DX: Z12.31 Encounter for screening mammogram for malignant neoplasm of breast (principal)
CPT/HCPCS: 77063; 77067

== ENCOUNTER 2025-04-13 10:56 | Emergency (ER) | payer BC, SELFPAY ==
[2025-04-13] VITALS (7 sets, daily range): BP systolic 122–190; BP diastolic 72–112; PULSE 94–106; RESP 15–16; TEMP 36.6–37.9; O2SAT 93–99; BMI 24.5
--- OUTSIDE RECORDS SUMMARY | 2025-04-13 11:03 | XMS_ITS | Data Portability ---
Author Organization [facility] YONATHAN MoiseS PALMER CLOSED Address [address] [place] [address] Care Team Providers Care Last Marker Name Role Phone LUIS EDUARDO BROOKS Primary Care Provider Assessment Encounter Date Assessment Date Assessment LastModified by Organization Details LastModified Time 06/04/2024 06/04/2024 EMG/NCV was reviewed, independently assessed, and discussed with the patient in the office today. Findings consistent with moderate to severe right carpal tunnel syndrome. 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 Discussion was had with patient in clinic today regarding diagnosis of carpal tunnel syndrome. Treatment options consisting of both conservative management and surgical intervention were discussed. I explained that initial treatment of carpal tunnel syndrome typically consist of conservative measures such as nighttime wrist splinting and activity modifications. If this fails or if the diagnosis is unclear we sometimes can consider a corticosteroid injection. However, if conservative measures fail, symptoms are worsening with a clear diagnosis of carpal tunnel syndrome, and/or there is evidence of severe compression at the carpal canal then surgical carpal tunnel release is recommended. At this time patient has failed conservative management with worsening symptoms and has elected to proceed with surgical right carpal tunnel release. Patient will be scheduled for right endoscopic carpal tunnel release at her convenience. Risk and benefits of the surgical procedure were explained to the patient in clinic today, including but not limited to incomplete symptom relief, recurrence, need for additional procedures, stiffness, damage to surrounding tissues/structure s/nerves/vessels, wound complications, and infection. Patient expressed understanding and all questions were answered to the patient's satisfaction. [email or web address] Not available 06/04/2024 17:53:47 07/02/2024 07/02/2024 Patient can gradually resume activity with the hand as tolerated at this time. I discussed scar massage with patient in clinic today. Patient will follow-up in 4 weeks for final postoperative assessment, but will call in the interim with any additional questions or concerns. [email or web address] Not available 07/04/2024 10:22:39 08/08/2024 08/08/2024 Patient can continue activity with the hand as tolerated at this time. Continue scar massage. Patient will follow up in clinic on an as-needed basis should additional questions or concerns arise. [email or web address] Not available 08/08/2024 14:11:55 Plan of Treatment Reminders Order Date Submit Date Provider Last Modified By Organization Details Last Modified Time Details Appointments None record ed. Lab None record ed. Referral None record ed. Procedures None record ed. Surgeries None record ed. Imaging None record ed. Medication Orders None record ed. Patient TargetsNo targets recorded. Patient InstructionsNo instructions recorded. Reason for Referral None Reported. Problems No Known Problems Procedures Surgical History Date Name Laterality Status Provider Name and Address Organization Details Recorded Time Carpal Tunnel Release, Endoscopic - Kary completed AYLEEN REYNA MD [address] [place], [address], [facility] 06/17/2024 11:18:38 9 [facility] 10:48:55 9 Injection Joint/Bursa, Major completed CHARLY SOLARES MD [address] [place], [address], [facility] 07/01/2019 13:22:39 orthopedic assessment completed [facility] 08/09/2018 15:38:49 procedure on wrist completed [facility] 08/09/2018 15:39:03 Caesarean Section completed [facility] 08/09/2018 15:39:10 Shoulder joint surgery completed [facility] 08/09/2018 15:39:27 Imaging Results None recorded. Procedure Notes None recorded. Medical Equipment None Reported. Allergies No known drug allergies Medications Name Sig Start Date Stop Date Status Note LastModified by Organization Details LastModified Time meloxicam 15 mg tablet Take 1 tablet every day by oral route as needed. 2019 active no longer taking per pt 024 Not Available Not Available Not Available tramadol 50 mg tablet TAKE 1 TABL PO Q 6 HRS PRN FOR SEVERE POST SURGICAL PAIN 07/02 completed Not Available Not Available Not Available meloxicam 7.5 mg tablet TAKE 1 TABLE PO QD WITH FOOD REGARDLE SS OF PAIN LEVEL FOR 1 WEEK. THEN TAKE 1 TABLET PO QD ONLY PRN FOR PAIN RELIEF THEREAFT ER 07/02 completed Not Available Not Available Not Available Zofran 4 mg tablet Take 1 tablet every 8 hours by oral route. 2018 active no longer taking per pt 024 Not Available Not Available Not Available Cipro 500 mg tablet Take 1 tablet every 12 hours by oral route. 06/24 completed Not Available Not Available Not Available Neurontin 100 mg capsule TAKE 1 CAPSULE PO QHS FOR 1 WEEK 07/02 completed Not Available Not Available Not Available Percocet 5 mg-325 mg tablet Take 1 tablet every 6 hours by oral route. 06/24 completed Not Available Not Available Not Available oxycodone 5 mg tablet Take 1 tablet every 4-6 hours by oral route as needed. 2018 active no longer taking per pt 024 Not Available Not Available Not Available rosuvastat in 5 mg tablet Take 1 tablet every day by oral route. active Not Available Not Available No t Available ondansetro n active Not Available Not Available Not Available Voltaren 1 % topical gel APPLY 2 GRAMS TO THE AFFECTED AREA(S) BY TOPICAL ROUTE 4 TIMES PER DAY 2018 active no longer taking per pt 024 Not Available Not Available Not Available levothyrox ine 50 mcg capsule Take 1 capsule every day by oral route. active Not Available Not Available No t Available Ubrelvy 100 mg tablet Take by oral route. active Not Available Not Available No t Available Vitals Date Recorded Body height Body mass index (BMI) Body weight Provider Name and Address Organization Details Last Updated DateTime 12/09/2019 170.18 cm 22.7 kg/m2 00566.89 g Josh Gupta [facility] 12/09/2019 15:08:57 Date Recorded Body weight Body mass index (BMI) Body height Provider Name and Address Organization Details Last Updated DateTime 06/04/2024 89995.22 g 24.1 kg/m2 170.18 cm Gina Azul [facility] 06/04/2024 08:47:57 Date Recorded Body height Body weight Provider Name and Address Organization Details Last Updated DateTime 07/02/2024 170.18 cm 82026.22 g Jenny Montero [facility] 07/02/2024 14:06:39 Date Recorded Body height Body mass index (BMI) Body weight Provider Name and Address Organization Details Last Updated DateTime 08/08/2024 170.18 cm 24.1 kg/m2 91424.22 g Ej Deutsch [facility] 08/08/2024 14:02:12 Social History Question Answer Notes LastModified by Organizat ion Details LastModified Time Tobacco Smoking Status Never [facility] 15:38:04 Marital Status Single Informatio n not available 08/09/2018 What Was The Date Of Your Most Recent Tobacco Screening? 08/21/2018 Information n ot available 11/26/2019 Sex: Female Functional Status Question Answer Note LastModified by Organization D etails LastModified Time What is your level of alcohol consumption? None Information not available 08/09/2018 Mental Status None recorded. Family History Relationship Description Onset Age of this Age Resolved Age Notes LastModified by Organization Details LastModified Time Sister Malignant tumor of breast ssaraya Not available 2017 15:37:59 Medical History Condition Response Kidney Stones Y Gynecological HistoryNo gynecological history recorded. Obstetrics History GPAL:G 0 P 0 0 0 0 Past Encounters Encounter ID Performer Location Encounter Start Date Encounter Closed Date Diagnosis/Indication Diagnosis SNOMED-CT Code Diagnosis ICD10 Code Diagnosis Note [id number] MECHE BELLA MD [facility] [address] [place] [address] 08/09/2018 14:29:23 08/09/2018 15:53:45 Ureteric stone 12275014 N20.1 [id number] MECHE BELLA MD SURGERY SCHEDULE [address] [place] [address] 08/10/2018 06:11:20 08/10/2018 06:11:50 Ureteric stone 61001266 N20.1 [id number] MECHE BELLA MD [facility] [address] [facility] [address] 08/15/2018 10:17:54 08/15/2018 10:53:27 Ureteric stone 25237130 N20.1 [id number] MECHE BELLA MD [facility] [address] [address] 08/21/2018 09:50:55 08/21/2018 11:27:07 Ureteric stone 94759932 N20.1 [id number] CHARLY SOLARES MD [facility] [address] [place] [address] 06/24/2019 08:17:21 06/24/2019 09:39:08 Pain in left knee 3876672495 46028 M25.239 [id number] CHARLY SOLARES MD ORTH[facility] [address] [facility] [place] [address] 07/01/2019 12:38:02 07/01/2019 12:58:51 Pain in left knee 8604288734 09371 M25.562 Assessment : Mild degenerati ve changes, posterior medial loose body, PCL cyst Plan: She has mild degenerati ve changes about the left knee. However, she is severely sensitive medially. Given this, a steroid injection was performed today. She tolerated the procedure well. She will begin physical therapy to work on strengthen ing of the leg and hip. She will follow-up in 2 months. If she does not have improvemen t, we can discuss arthroscop y at that time. [id number] CHARLY SOLARES MD [facility] [address] [place] [address] 08/12/2019 08:55:29 08/12/2019 09:59:16 Tear of medial meniscus of knee [id number] S83.222D Assessment : Severe left knee pain consistent with medial meniscus tear and saphenous nerve irritation Plan: Due to her pain despite appropriat e conservati ve measures including injection, anti-infla mmatories, physical therapy, she would like to proceed with left knee arthroscop y with partial medial meniscecto my. I would also use a posterior medial portal to help debride the PCL cyst. Given her saphenous nerve symptoms, I will plan for a saphenous nerve steroid injection at the same time. Indication s, alternativ es, risk and benefits were discussed. The risks included but limited to infection, neurovascu lar injury, numbness, adhesions, persistent pain, blood clot, medical problems. [id number] CHARLY SOLARES MD SURGERY SCHEDULE [address] [place] [address] 08/22/2019 06:44:56 08/22/2019 06:46:05 Postoperative care [id number] Z48.89 [id number] CHARLY SOLARES MD [facility] [address] [address] 09/11/2019 10:18:35 09/11/2019 11:39:32 Postoperative care [id number] Z48.89 Assessment : 22 weeks status post left knee arthroscop y with partial medial meniscecto my and chondropla sty. She has some lingering symptoms. This is in the setting of medial knee arthritis best appreciate d at time of surgery. She does note some subjective instabilit y. Plan: For instabilit y, I have recommende d a medial rn intake brace. This should also help with her medial compartmen t arthritis. She will continue to work with physical therapy. Follow up in 6 weeks. [id number] CHARLY SOLARES MD [facility] [address] [address] 10/08/2019 09:05:45 10/08/2019 09:43:36 Postoperative care [id number] Z48.89 Assessment : 6 weeks status post left knee arthroscop y with partial medial meniscecto my and chondropla sty. She understand s that she has grade 4 changes of her medial femoral condyle with early changes of the tibial plateau. Grade 2-3 chondromal acia of the trochlea. Plan: She will continue to wear the rn intake brace and may take anti-infla mmatories as needed. She'll return to work next week and slowly increase her hours. She'll see if she can tolerate the prolactin standing that is required. If she cannot, our options would include potential large osteochond ral allograft, partial knee replacemen t, versus total knee replacemen t. If she has continued pain, I would like her to discuss these options with my partner Dr. Hyun lanier as well. [id number] CHARLY SOLARES MD ORTH[facility] [address] [place] [address] 12/09/2019 15:05:14 12/09/2019 15:18:12 Osteoarthritis of left knee joint [id number] 84387 M17.12 Assessment : Left knee medial compartmen t osteoarthr itis, preserved lateral and patellofem oral compartmen ts. Plan: The natural history of osteoarthr itis was discussed today. Arthritis is likely to progress with intermitte nt symptoms not necessaril y related to activity. It is often accompanie d by swelling that can also be a source of pain. Options for arthritis include: - Strengthen ing and stretching - Anti-infla mmatories - Injections - Braces - Joint replacemen t As she has tried all of the conservati ve options and is very limited, she is interested in arthroplas ty. I think she would be a good candidate for medial unicompart ment arthroplas ty. In [facility], Dr. Katarzyna lanier would be her best option for evaluation . 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 [id number] AYLEEN REYNA MD SURGERY SCHEDULE [address] [place] [address] 06/17/2024 09:16:37 06/17/2024 09:19:41 [id number] CARMINE MAJOR PA-C [facility] [address] [place] [address] 07/02/2024 13:52:55 07/02/2024 14:24:50 Postoperative care [id number] Z48.89 s/p right endoscopic carpal tunnel release (DOS: 06/17/24) [id number] AYLEEN REYNA MD [facility] [address] [place] [address] 08/08/2024 13:56:52 08/08/2024 14:24:19 Postoperative care [id number] Z48.89 6 weeks s/p right endoscopic carpal tunnel release (DOS: 06/17/24) Health Concerns Section Related Observation LastModified by Organization Detai ls LastModified Time None Recorded Concern Status LastModified by Organization Details LastModified Time None Recorded Advance Directives Directive None Recorded Payers Insurance Date Sequence Insurance Name Policy Number Policy Jackman Covered Member ID Jackman Member ID Guarantor Name 10/08/2019 1 [place] [id number] Eloise Cash [id number] Eloise Holland 10/14/2020 PAYMENT PLAN Eloise Holland 05/23/2024 1 [place] [id number] Eloise Cash [id number] Eloise Holland 06/04/2024 1 [place] [id number] Isra Holland [id number] Eloise Holland 08/09/2024 1 [place] [id number] Isra Holland [id number] Eloise Holland Notes Date Note Type Note Provider Name and Address Organization Details Recorded Time 0 text/html 12-09-19 Patient comes in today for FU Left Knee. Patient states they are same than last visit. She continues to have significant medial knee pain that is worse with prolonged activity and getting up off the ground when playing with her grandkids. No issue with her wounds. No signficant swelling. The rn intake brace mildly helps. Meloxicam helps the most. 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 She presents to the clinic for evaluation of right hand numbness and tingling. Reports symptoms began about 3 months ago with progressive worsening of symptoms over time. Numbness localized to the radial four digits. Reports symptoms are exasperated with overuse and also wake her up at night. She has tried nighttime splinting, but this has not been helpful. Patient reports hypothyroidism and cervical degenerative disc disease. She denies history of diabetes, rheumatoid arthritis, cervical spine pathology, previous wrist fracture, or smoking. Reports previous surgical left carpal tunnel release in 1994 and revision release in 1998. Consult requested by: [facility] Physician: Luis Eduardo Brooks MD Hand dominance: RightLocation: Right Hand Pain level: 9 /10 Duration: 3+ months Recent Surgery: NoProcedure:Date of surgery:Duration: In office procedure? No Previous upper extremity surgery? YesProcedure: rt wristApproximate date of surgery:urgeon (if known): Procedure: rt elbow: 1991Procedure: rt shoulder:1993 Procedure: lt CTRDate: 1990 Have you or any of your immediate family members been seen by our hand surgeons before? No Currently employed?: Full timeEmployer: 3MOccupation: factory Are they currently working? Yes Is this injury associated with a Workers Compensation claim? No Patient arrived in: n/a Hand Pleater Strength: right: left: New. Ms holland is here with n/t in the right hand. EMG attached AYLEEN REYNA MD [address] [place], [address], [facility] 06/04/2024 17:53:57 4 text/html Patient presents today for post op follow up visit. Reports uneventful post op period. POST OP GLOBAL VISITDATE OF SURGERY: 06/17/2024TIME POST SURGERY:15 daysSURGERY: right endoscopic carpal tunnel release INTERVAL HISTORY: PREOP SYMPTOMSBETTER PAIN LEVEL (VAS)0/10 OVERALL ASSESSMENTIMPROVING CARMINE MAJOR PA-C [address] [place], [address], [facility] 07/04/2024 10:22:49 4 text/html Patient reports complete resolution of preoperative numbness and tingling in the hand. Mild soreness in the palm as expected. Otherwise no complaints. POST OP GLOBAL VISITDATE OF SURGERY: 06/17/2024TIME POST SURGERY:6 WKSSURGERY: right endoscopic carpal tunnel release INTERVAL HISTORY: PREOP SYMPTOMSBETTER PAIN LEVEL (VAS)5/10 OVERALL ASSESSMENTIMPROVING Ms. Holland is here for post-op visit. She says that she has been experiencing pain/throbbing at the base of her rt wrist. She reports that the pain comes and goes. She otherwise says that it feels good. employment status: Back to work AYLEEN REYNA MD [address] [place], [address], [facility] 08/08/2024 14:21:56 OBGyn Episode No OBEpisode recorded.
[2025-04-13 11:08] LABS: Microscopic, Urine URINE MICROSCOPIC (MICROSCOPIC)
--- NOTE | 2025-04-13 11:08 | CT_ITS ---
PROCEDURE INFORMATION: Exam: CT Abdomen And Pelvis Without Contrast Exam date and time: 04/13/2025 11:30 AM Age: 54 years old Clinical indication: Abdominal pain; Additional info: R flank pain, h/o kidney stones TECHNIQUE: Imaging protocol: Computed tomography of the abdomen and pelvis without contrast. Radiation optimization: All CT scans at this facility use at least one of these dose optimization techniques: automated exposure control; mA and/or kV adjustment per patient size (includes targeted exams where dose is matched to clinical indication); or iterative reconstruction. COMPARISON: 1. CT ABDOMEN PELVIS WO CON 03/06/2020 12:[address] - ABDPELWO CT abdomen pelvis wo con 08/07/2018 11:32 AM FINDINGS: Lungs: The partially imaged lung bases are clear. Liver: There is fatty liver. Gallbladder and biliary ducts: Normal. No calcified stones. No ductal dilation. Pancreas: There is normal noncontrast appearance of the pancreas. Spleen: Normal. No splenomegaly. Adrenal glands: Normal. No mass. Kidneys and ureters: There is punctate nephrolithiasis in the left kidney. There are few subcentimeter hypodensities in the left kidney, likely represent cysts. There is no nephrolithiasis in the right kidney. There is mild hydronephrosis in the right kidney along with a 5.5 mm stone in the proximal right ureter. Stomach and bowel: There is no bowel obstruction. Appendix: Appendix is not visualized. Intraperitoneal space: There is no free intraperitoneal air. Vasculature: Unremarkable. No abdominal aortic aneurysm. Lymph nodes: Unremarkable. No enlarged lymph nodes. Urinary bladder: Urinary bladder is decompressed. There is also a 3 mm stone at the right bladder base (image 105; series 3). Reproductive: Unremarkable as visualized. Bones/joints: Unremarkable. No acute fracture. Soft tissues: Unremarkable. IMPRESSION: 1. 5.5 mm stone in the proximal right ureter with associated mild hydronephrosis in the right kidney. 2. Punctate nonobstructing nephrolithiasis in the left kidney. 3. 3 mm stone of the right bladder base. This is not felt to represent a phlebolith as it is not visualized on previous CT dated 08/07/2018. COMMENTS: Consistent with the [employer]'s Incidental Findings Committee white paper (J Am Breonna Radiol 2018): Any incidental renal lesion less than 1 cm or classified as too small to characterize, or any incidental cystic renal lesion characterized as simple-appearing, is likely benign. No follow-up imaging is recommended for these lesions per consensus recommendations based on imaging criteria.
--- NOTE | 2025-04-13 11:09 | HMH.EDGENADL ---
Discharge Plan Disposition Patient Disposition: Xfer Short-Term Hosp Condition: Good Prescriptions Prescriptions: No Action trazodone 50 mg tablet 50 mg PO DAILY levothyroxine 50 mcg tablet 50 mcg PO DAILY Ubrelvy 100 mg tablet 100 mg PO DAILYP PRN (Reason: MIGRAINES) Patient Comments: TAKE 1 TABLET BY MOUTH ONCE DAILY NEEDED benzonatate [benzonatate] 100 mg capsule 100 mg PO TIDP PRN (Reason: Cough) Qty: 30 0RF methylprednisolone 4 mg Tablets,Dose Pack 4 mg PO DIRECTED Qty: 21 0RF amoxicillin-pot clavulanate 500-125 mg tablet 1 tab PO BID Qty: 20 0RF Referrals Follow up/Referrals: Cheng Cadena MD [Primary Care Provider, Medical] - See instructions Clinical Impressions Clinical Impression: Ureterolithiasis, Sepsis, UTI (urinary tract infection) Stand Alone Forms Stand Alone Forms: Work/School Release Instructions Patient Instructions: Kidney Stones -- Adult, DI for Kidney Stones Print Language Print Language: Burundian Discharge ED Provider: Janessa Carlisle General Adult HPI General Chief complaint: Urogenital-Female Stated complaint: lower back pain, nausea, poss. kidney stone Time Seen by Provider: 04/13/25 11:02 History of Present Illness HPI narrative: This patient is a 54-year-old female with a history of prior kidney stones (requiring lithotripsy 2011) presenting to the emergency department for evaluation with concern for right flank pain that started this morning when she woke up. She thought maybe she laid in bed too long, so she got up and not moving around but the pain did not go away. She states that severe and constant no matter what position she is in. She notes it feels like prior kidney stone. She also notes nausea and difficulty with urinating. She denies any fevers, vomiting, changes in bowel movements, or other concerns. She was well prior to this morning with no recent falls or injuries Related Data Home Medications ?Medication ?Instructions ?Recorded ?Confirmed levothyroxine 50 mcg tablet 50 mcg PO DAILY THYROID 12/09/22 12/09/22 trazodone 50 mg tablet 50 mg PO DAILY . 12/09/22 12/09/22 ubrogepant 100 mg tablet (Ubrelvy) 100 mg PO DAILYP PRN MIGRAINES 12/09/22 12/09/22 Previous Rx's ?Medication ?Instructions ?Recorded amoxicillin 500 mg-potassium 1 tab PO BID #20 tabs 12/09/22 clavulanate 125 mg tablet benzonatate 100 mg capsule 100 mg PO TIDP PRN Cough #30 caps 12/09/22 methylprednisolone 4 mg tablets in 4 mg PO DIRECTED #21 tabs 12/09/22 a dose pack Allergies Allergy/AdvReac Type Severity Reaction Status Date / Time No Known Allergies Allergy Verified 07/14/19 23:09 [facility] Disclaimer: The information contained in this section may have been updated after the patient was seen, as this information can be updated by other users. Social History Smoking Status: Never smoker alcohol intake: never current occupational status: employed Travel in the last 8 weeks?: None Have you lived/traveled outside [place] in past 30 days?: No Contact w/someone who lives/traveled outside [place] past 30 days?: No Exposure to someone with infectious disease in past 14 days?: No Do you have a fever (greater than 100.4 F or 38 C)?: No Have you tested positive for COVID-19?: No Exposed to someone with COVID-19 in past 14 days?: No Do you have a sore throat?: No Do you have a cough?: No Do you have any weakness?: Yes Do you have any diarrhea?: No Are you experiencing any unusual bleeding?: No Do you have any muscle aches/pain?: Yes Do you have any abdominal pain?: Yes Are you experiencing loss of taste or smell?: No Other Medical History Have you received the Flu Vaccine for this season: No Have you received the Pneumonia Vaccine: No ROS Obtained: Yes All systems reviewed & no additional complaints except as documented Physical Exam General General appearance: alert Comment: Uncomfortable appearing Head Head exam: atraumatic and normocephalic Eye Eye exam: Present normal appearance, PERRL and EOMI ENT ENT exam: Present normal exam, normal oropharynx, mucous membranes moist and normal external ear exam Neck Neck exam: Present normal inspection, full ROM and trachea midline; Absent tenderness Chest Chest inspection: Present normal inspection and symmetric chest wall rise; Absent tenderness Respiratory Respiratory exam: Present normal lung sounds bilaterally; Absent respiratory distress, wheezes, stridor or accessory muscle use Cardiovascular Cardiovascular exam: Present regular rate and normal rhythm Abdominal Exam Abdominal exam: Present soft; Absent distention, tenderness or guarding Extremities Exam Extremities exam: Present normal inspection, full ROM and normal capillary refill; Absent tenderness or edema Back Exam Back exam: Present normal inspection and full ROM; Absent tenderness Neurological Exam Neurological exam: Present alert, oriented X3, CN II-XII intact and normal gait; Absent motor sensory deficit Psychiatric Psychiatric exam: Present normal affect and normal mood Skin Skin exam: Present warm and dry Medical Decision Making Medical Records Medical records reviewed: Yes I reviewed the patient's medical records. Screening: Per USPSTF and CDC recommendations, given the prevalence of disease in our region, it is our hospital?s policy to screen for HIV and viral Hepatitis for all patients aged 18 and over and those with ongoing risk factors. Yoan Inquiry Pt receiving controlled substance: No Vital Signs: 04/13/25 11:03 04/13/25 11:17 04/13/25 12:00 Temperature 97.9 F Temperature Source Oral Pulse Rate 99 H 100 H Pulse Rate [Right Radial] 94 H Respiratory Rate 15 Blood Pressure 190/112 H 145/86 H Blood Pressure [Right Arm] 190/112 H Blood Pressure Mean [Right Arm] 138 Blood Pressure Source [Right Arm] Automatic Cuff Blood Pressure Position [Right Arm] Sitting 02 Sat by Pulse Oximetry 98 99 95 Oxygen Delivery Method Room Air 04/13/25 13:06 Temperature 100.2 F H Temperature Source Axillary Pulse Rate Pulse Rate [Right Radial] Respiratory Rate Blood Pressure Blood Pressure [Right Arm] Blood Pressure Mean [Right Arm] Blood Pressure Source [Right Arm] Blood Pressure Position [Right Arm] 02 Sat by Pulse Oximetry Oxygen Delivery Method Lab Data Lab results reviewed: Yes I reviewed the patient's lab results. Lab Results 04/13/25 11:02: Urine Color Yellow, Urine Appearance Clear, Urine pH 6.0, Ur Specific Carney >= 1.030, Urine Protein Trace, Urine Glucose (UA) Negative, Urine Ketones Negative, Urine Blood 3+ A, Urine Nitrate Positive A, Urine Bilirubin Negative, Urine Urobilinogen 0.2, Ur Leukocyte Esterase Trace, Urine RBC 10-20, Urine WBC 3-5, Ur Squamous Epith Cells 3-5, Urine Bacteria 1+ 04/13/25 11:11: WBC 12.3 H, RBC 4.40, Hgb 13.4, Hct 42.6, MCV 96.8, MCH 30.5, MCHC 31.5 L, RDW 11.9, Plt Count 308, MPV 9.1, Neut % (Auto) 87.3 H, Lymph % (Auto) 8.7 L, Price % (Auto) 2.8, Eos % (Auto) 0.6, Baso % (Auto) 0.4, Neut # (Auto) 10.7 H, Lymph # (Auto) 1.1, Price # (Auto) 0.3, Eos # (Auto) 0.1, Baso # (Auto) 0.1, Sodium 139, Potassium 4.1, Chloride 100, Carbon Dioxide 26, Anion Gap 17.1 H, BUN 17, Creatinine 0.80, Estimated Creat Clear 88, Estimated GFR 74, Est GFR ( Amer) 90, Glucose 126 H, Calcium 9.6, Total Bilirubin 0.8, AST 65 H, ALT 55, Alkaline Phosphatase 104, C-Reactive Protein 3.1, Total Protein 8.3 H, Albumin 4.9, Globulin 3.4 H, Albumin/Globulin Ratio 1.4, Lipase 66, HCV Ab YI w/Rflx PCR Qn Negative, HIV Ag/Ab Combo Qual Negative 04/13/25 12:54: Lactate 2.4 H 04/13/25 11:11 04/13/25 11:11 Orders (Tests/Meds): ED MEDICATIONS Generic Name Dose Route Start Last Admin Trade Name Freq PRN Reason Stop Dose Admin Sodium Chloride 1,000 mls @ 999 mls/hr 04/13/25 12:55 Sod Chlor 0.9% 1000ml Bag IV 04/13/25 13:55 .Q1H1M ONE Discontinued Medications Generic Name Dose Route Start Last Admin Trade Name Freq PRN Reason Stop Dose Admin Acetaminophen 1,000 mg 04/13/25 12:43 04/13/25 12:51 Acetaminophen 1,000mg/100ml Vial IV 04/13/25 12:44 1,000 mg ONCE ONE Administration Lactated Ringer's 1,000 mls @ 999 mls/hr 04/13/25 11:08 04/13/25 11:16 Lactated Ringer's 1000 Ml Bag IV 04/13/25 12:08 999 mls/hr .Q1H1M ONE Administration Ceftriaxone Sodium 2 gm/ 100 mls @ 200 mls/hr 04/13/25 12:47 Sodium Chloride IV 04/13/25 13:16 ONCE ONE Ketorolac Tromethamine 15 mg 04/13/25 11:08 04/13/25 11:15 Ketorolac 30mg/Ml Vial IV 04/13/25 11:09 15 mg ONCE ONE Administration Morphine Sulfate 4 mg 04/13/25 11:08 04/13/25 11:15 Morphine 4mg/Ml Syringe IV 04/13/25 11:09 4 mg ONCE ONE Administration Ondansetron HCl 4 mg 04/13/25 11:08 04/13/25 11:16 Ondansetron 4mg/2ml Vial IV 04/13/25 11:09 4 mg ONCE ONE Administration Ondansetron HCl 4 mg 04/13/25 12:54 04/13/25 12:59 Ondansetron 4mg/2ml Vial IV 04/13/25 12:55 4 mg ONCE ONE Administration ORDERS Category Date Time Status CT abdomen pelvis wo con Stat Cat Scan 04/13/25 11:08 Completed CRP [C-Reactive Protein] Stat Lab 04/13/25 11:11 Completed Complete Blood Count Auto Diff Stat Lab 04/13/25 11:11 Completed Comprehensive Metabolic Panel Stat Lab 04/13/25 11:11 Completed HIV Combo Stat Lab 04/13/25 11:11 Completed Hepatitis C Ab Qual. W/ RFX Stat Lab 04/13/25 11:11 Completed Lactic Acid Stat Lab 04/13/25 12:54 Completed Lipase Stat Lab 04/13/25 11:11 Completed UA [Urinalysis and Microscopic] Stat Lab 04/13/25 11:02 Completed Blood Culture Stat Micro 04/13/25 12:47 Ordered Urine Culture Stat Micro 04/13/25 11:02 Received Medical Decision Narrative: In summary, this patient is a 54-year-old female presenting to the Emergency Department for evaluation of right flank pain. Differential diagnoses considered include but are not limited to ureterolithiasis, pyelonephritis, colitis, cholecystitis, appendicitis, musculoskeletal strain/sprain. Ruling out the most morbid conditions drove assessment. I reviewed patient's past medical records and noted prior ED evaluations in 2019 for renal colic. On exam, the patient is sitting upright and is uncomfortable appearing. She is afebrile. She is hypertensive but otherwise vitals are reassuring on cardiac telemetry. Abdominal exam is benign. Workup included CBC, CMP, lipase, urinalysis, CT abdomen pelvis without IV contrast. She was given a bolus of IV fluids as well as IV morphine, Zofran, Toradol for symptomatic improvement. On reassessment, patient developed rigors and had spiked a fever with axillary temp of 100.3 ?F. She has vomiting despite receiving medications and is very uncomfortable. White blood cell count came back elevated at 12.3 with neutrophilic predominance. Urinalysis is concerning for infection with positive nitrates, leukocyte esterase, 1+ bacteria, and white blood cells. There are 3-5 squamous epithelial cells, but patient declines providing cath urine specimen at this time. Kidney function is normal with her creatinine of 0.8. I independently interpreted CT scan prior to the radiologist read and noted obstructive right proximal ureteral stone measuring 5.5 mm. She also has a smaller stone within her bladder. Please see their read for final interpretation. Overall, the patient is clinically worsening with worsening symptoms, new fever, elevated white blood cell count, and urinalysis is concerning for infection in the setting of obstructive stone. I am concerned for sepsis. She was given a second liter bolus of IV fluids for a total of 2 L, which is the equivalent of a sepsis bolus for ideal body weight. She started on IV Rocephin after blood cultures were sent. We do not have urology here, so I feel she would benefit from transfer for higher level of care for urgent urology evaluation in the setting of infected obstructed stone. I initiated discussions with [facility] at 12:50 PM. At 1330, Dr. Franklin accepted the patient to [facility] ED after interactive discussion. EMS transport was arranged, and she was transferred in stable condition. Critical Care Critical Care Time Critical Care Time: Yes Attestation: On 04/13/25, the high probability of a clinically significant, sudden or life threatening deterioration of the following system(s) required my full and direct attention, intervention and personal management. The time I documented below is in addition to time spent performing reported procedures but includes the following listed in this critical care notation. Total Time Total Critical Care Time: 35
[2025-04-13] MEDS: KETOROLAC 30MG/ML VIAL 15 MG IV (11:15)
[2025-04-13] MEDS: MORPHINE 4MG/ML SYRINGE 4 MG IV (11:15)
[2025-04-13] MEDS: LACTATED RINGERS 1000ML 1,000 ML 999 ML IV (11:16)
[2025-04-13] MEDS: ONDANSETRON 4MG/2ML VIAL 4 MG IV ×2 (11:16→12:59)
[2025-04-13 11:32] LABS: Hematocrit 42.6 % (37.0-47.0); Hemoglobin 13.4 g/dL (12.2-16.2); Immature Granulocytes % 0.2 %; Mean Corpuscular HGB Conc 31.5 g/dL (31.8-35.4); Mean Corpuscular Hemoglobin 30.5 pg (27.0-31.2); Mean Corpuscular Volume 96.8 fl (81-99); Nucleated Red Blood Cells % 0 %; Platelet Count 308 K/mm3 (142-424); Red Blood Count 4.40 M/mm3 (4.20-5.40); Red Cell Distribution Width-SD 42.1 fL; White Blood Count 12.3 K/mm3 (4.8-10.8)
[2025-04-13 11:33] LABS: Bilirubin,Urine Negative (Negative); Color,Urine YELLOW (Yellow); Glucose,Urine (UA) Negative (Negative); Ketones,Urine Negative (Negative); Leukocyte Esterase,Urine TRACE (Negative); PH,Urine 6.0 (5.0-8.5); Protein,Urine TRACE (Negative); Specific Gravity, Urine >= 1.030 (1.005-1.030); Urobilinogen,Urine 0.2 EU/dl (0.2)
[2025-04-13 12:11] LABS: Alanine Aminotransferase 55 U/L (12-78); Albumin Level 4.9 g/dl (3.5-5.0); Albumin/Globulin Ratio 1.4 (1.1-1.8); Alkaline Phosphatase 104 U/L (38-126); Anion Gap 17.1 mEq/L (5-15); Aspartate Amino Transferase 65 U/L (14-36); Bilirubin,Total 0.8 mg/dl (0.2-1.3); Blood Urea Nitrogen 17 mg/dl (7-17); Calcium 9.6 mg/dl (8.4-10.2); Carbon Dioxide 26 mmol/L (22.0-30.0); Chloride 100 mmol/L (98-107); Creatinine Clearance Estimated 88 mL/min (50-200); Creatinine,Serum 0.80 mg/dl (0.52-1.04); Estimated Glomerular Filt Rate 74 ml/min (>60); GFR (African American) 90 ML/MIN (>60); Globulin 3.4 g/dL (1.3-3.2); Glucose 126 mg/dl (74-100); Lipase 66 U/L (23-300); Potassium 4.1 mmoL/L (3.5-5.1); Sodium 139 mmol/L (136-145); Total Protein,Serum 8.3 g/dl (6.3-8.2)
[2025-04-13 12:30] LABS: Bacteria,Urine 1+ /lpf
[2025-04-13 12:48] LABS: Hepatitis C Ab Qual. W/ RFX NEGATIVE (Negative)
--- NOTE | 2025-04-13 12:48 | PC.NURSE ---
recheck patient temp 100.2 axillary
[2025-04-13] MEDS: ACETAMINOPHEN 1,000MG/100ML VIAL 1000 MG IV (12:51)
--- NOTE | 2025-04-13 12:51 | PC.NURSE ---
call made to transfer center for pts transfer related to sepsis related to infected, obstructed 5.5mm stone in the right proximal ureter.
[2025-04-13 13:16] LABS: C-Reactive Protein 3.1 mg/L (0-4)
[2025-04-13] MEDS: 0.9 % SODIUM CHLORIDE 1000ML 1,000 ML 999 ML IV (13:34)
--- NOTE | 2025-04-13 13:49 | PC.NURSE ---
2nd set of cultures done at 1338, then antibiotic was hung at 1345 on patient
--- NOTE | 2025-04-13 13:56 | PC.NURSE ---
rounded on patient, no needs voiced at this time.
[2025-04-13 17:00] LABS: Reflex Lactic Add Lactic Reflex
[2025-04-14 00:26] LABS: Acinetobacter calcoaceticus-ba Not Detected; Bacteroides fragilis Not Detected; CTX-M Detected; Candida auris Not Detected; Candida glabrata Not Detected; Enterobacterales Detected; Enterococcus faecalis Not Detected; Enterococcus faecium Not Detected; IMP Not Detected; KPC Not Detected; Klebsiella aerogenes Not Detected; Klebsiella pneumoniae grp Not Detected; NDM Not Detected; OXA-48-like Not Detected; Proteus spp. Not Detected; Salmonella spp. Not Detected; Serratia marcescens Not Detected; Staphylococcus epidermidis Not Detected; Staphylococcus lugdunensis Not Detected; Staphylococcus spp. Not Detected; Stenotrophomonas maltophilia Not Detected; Streptococcus agalactiae(GrpB) Not Detected; Streptococcus pyogenes Group A Not Detected; Streptococcus spp. Not Detected; VIM Not Detected; mcr-1 Not Detected
[2025-04-14 00:26] LABS: Acinetobacter calcoaceticus-ba Not Detected; Bacteroides fragilis Not Detected; CTX-M Detected; Candida auris Not Detected; Candida glabrata Not Detected; Enterobacterales Detected; Enterococcus faecalis Not Detected; Enterococcus faecium Not Detected; IMP Not Detected; KPC Not Detected; Klebsiella aerogenes Not Detected; Klebsiella pneumoniae grp Not Detected; NDM Not Detected; OXA-48-like Not Detected; Proteus spp. Not Detected; Salmonella spp. Not Detected; Serratia marcescens Not Detected; Staphylococcus epidermidis Not Detected; Staphylococcus lugdunensis Not Detected; Staphylococcus spp. Not Detected; Stenotrophomonas maltophilia Not Detected; Streptococcus agalactiae(GrpB) Not Detected; Streptococcus pyogenes Group A Not Detected; Streptococcus spp. Not Detected; VIM Not Detected; mcr-1 Not Detected
--- NOTE | 2025-04-14 05:36 | PC.NURSE ---
Lab called to give critical results on pt. Stated pt's cultures were + PCR e.coli w/ CTM-X resistance. Results discussed with Dr. Loera. Pt was transferred to . Dr. Loera called [facility] and spoke w/ the patient's nurse and informed them of the positive cultures.
--- NOTE | 2025-04-14 09:19 | PC.NURSE ---
BLOOD CULTURE RESULTS RECEIVED FROM [facility] IN LAB. PT NAME AND R/V SPOKE WITH JW BECKETT AT THAT IS PT'S NURSE. UPDATED ON BLOOD CULTURES. OFFERED TO FAX UPDATE, JW BECKETT CARING FOR PT DECLINED
--- NOTE | 2025-04-15 13:22 | PC.NURSE ---
blood culture and urine culture results received from lucio in the lab. pt transferred to . attempted to call [facility] and speak to nurse caring for pt. no answer when transferred to pt floor from crimping machine operator for metal. will attempt again.
--- NOTE | 2025-04-15 14:28 | PC.NURSE ---
attempted to call [facility] again to relay blood and urine culture results from LAB. no answer at nurses station, TRN called gas processing plant operator back and was then transferred to the floor using a different number, still no answer.
--- NOTE | 2025-04-15 14:31 | PC.NURSE ---
pt in room 775 at , unknown floor name.
--- NOTE | 2025-04-15 14:34 | PC.NURSE ---
spoke with izabella pts nurse at . will fax over pts results to [phone]
== END 2025-04-13 14:14 | disposition short-term general hospital (02) ==
PROVIDERS: Emergency Provider Emergency Medicine; PCP Internal Medicine
DX: N20.1 Calculus of ureter (principal); A41.9 Sepsis, unspecified organism; N39.0 Urinary tract infection, site not specified; G43.901 Migraine, unspecified, not intractable, with status migrainosus
CPT/HCPCS: 74176; 80053; 81001; 83605; 83690; 85025; 86140; 86803; 87040; 87077; 87086; 87088; 87154; 87186; 87389; 96361; 96365; 96375; 96376; 99291; J0131; J0696; J1885; J2270; J2405; J7030; J7120